=== PATIENT | male | born 1990 | race Caucasian/White ===

== ENCOUNTER 2021-04-28 19:59 | Emergency (ER) | payer MEDICAID ==
[~2021-04-28] VITALS: Ht 175.3 cm; Wt 75.0 kg
[2021-04-28 21:38] LABS: BASOPHILS % 0.3 % (0.0-2.0); EOSINOPHILS % 1.7 % (0.0-5.0); HEMATOCRIT. 33.7 % (42.0-52.0); HEMOGLOBIN. 10.9 g/dL (14.0-18.0); LYMPHOCYTES % 48.6 % (20.0-50.0); MEAN CORPUSCULAR HEMOGLOBIN 27.4 pg (28.0-32.0); MEAN CORPUSCULAR VOLUME 84.6 fL (80.0-94.0); MONOCYTES % 8.1 % (2.0-8.0); NEUTROPHILS % 41.3 % (40.0-76.0); RED BLOOD CELL COUNT 3.98 mill/uL (4.7-6.1); RED CELL DISTRIBUTION WIDTH 18.1 % (11.6-14.6)
[2021-04-28 21:39] LABS: CHLORIDE 105 mEq/L (98-107)
[2021-04-28 22:28] LABS: MEAN PLATELET VOLUME 8.7 fl (7.4-10.4); PLATELET 64 x1000/uL (130-400)
[2021-04-28] MEDS ORDERED: SODIUM CHLORIDE 0.9% 1,000 ML IV ONE (23:00)
[2021-04-28] MEDS ORDERED: KETOROLAC 30MG/ML VIAL IV ONE (23:00)
[2021-04-29 00:10] VITALS: BP 135/90
== END 2021-04-29 00:16 | disposition home or self-care (01) ==
LOC: ER 19:59
DX: R00.2 Palpitations (principal); R07.9 Chest pain, unspecified
CPT/HCPCS: 36415; 71045; 80053; 84443; 84484; 85025; 85379; 93005; 96361; 96374; 99285; J1885; J7030; Z7610

== ENCOUNTER 2022-04-11 09:59 | Emergency (ER) | payer MEDICAID ==
[~2022-04-11] VITALS: Ht 177.8 cm; Wt 75.0 kg
[~2022-04-11 09:59] MED LIST: CYAN-50 MT; FOLI-43 MT; KEPP500 MT; L25 MT; MULT-230 MT; THIA100T72 MT
[2022-04-11] MEDS ORDERED: LEVETIRACETAM 1000MG PREMIX 100 ML IV ONE (10:15)
[2022-04-11] MEDS ORDERED: KETOROLAC 30MG/ML VIAL IV ONE (12:00)
[2022-04-11 12:15] LABS: BASOPHILS % 0.7 % (0.0-2.0); EOSINOPHILS % 0.4 % (0.0-5.0); HEMATOCRIT. 41.1 % (42.0-52.0); HEMOGLOBIN. 13.3 g/dL (14.0-18.0); LYMPHOCYTES % 27.1 % (20.0-50.0); MEAN CORPUSCULAR HEMOGLOBIN 26.2 pg (28.0-32.0); MEAN CORPUSCULAR VOLUME 80.8 fL (80.0-94.0); MONOCYTES % 5.2 % (2.0-8.0); NEUTROPHILS % 66.6 % (40.0-76.0); RED BLOOD CELL COUNT 5.09 mill/uL (4.7-6.1); RED CELL DISTRIBUTION WIDTH 16.9 % (11.6-14.6)
[2022-04-11 12:23] LABS: CHLORIDE 98 mEq/L (98-107)
[2022-04-11 12:30] LABS: ETHANOL BLOOD 277 mg/dL
[2022-04-11 12:31] LABS: MEAN PLATELET VOLUME 8.3 fl (7.4-10.4)
[2022-04-11 14:14] VITALS: BP 125/79
[2022-04-12 12:53] LABS: PLATELET 43 x1000/uL (130-400)
== END 2022-04-11 14:22 | disposition home or self-care (01) ==
LOC: ER 09:59
DX: R56.9 Unspecified convulsions (principal); F10.129 Alcohol abuse with intoxication, unspecified; Y90.9 Presence of alcohol in blood, level not specified; D69.6 Thrombocytopenia, unspecified
CPT/HCPCS: 36415; 80053; 80320; 84484; 85025; 96365; 96375; 99284; J1885; J1953; Z7610; G0480